=== PATIENT | female | born 1960 | race Caucasian/White ===

== ENCOUNTER → 2022-06-23 15:31 | Outpatient (CLI) | payer OTHER, SELFPAY | PROVIDERS: Visit Provider Nurse Practitioner Family | DX: N39.0 Urinary tract infection, site not specified (principal); R30.0 Dysuria | CPT/HCPCS: 87077; 87086; 87186; 87210 ==

== ENCOUNTER → 2022-07-10 09:46 | Outpatient (CLI) | payer OTHER, SELFPAY | PROVIDERS: Visit Provider Physician Assistant | DX: R30.0 Dysuria (principal) | CPT/HCPCS: 87086; 87210 ==

== ENCOUNTER → 2023-07-24 15:42 | Outpatient (CLI) | payer BC, SELFPAY | PROVIDERS: PCP Registered Nurse Diabetes Educator; Visit Provider Student in an Organized Health Care Education/Training Program | DX: R30.0 Dysuria (principal) | CPT/HCPCS: 87086 ==

== ENCOUNTER → 2023-12-27 07:38 | Outpatient (CLI) | payer BC, SELFPAY ==
[2023-12-27 08:15] LABS: Hematocrit 39.8 % (36-46); Hemoglobin 13.5 g/dL (12.0-16.0); Mean Corpuscular HGB Conc 33.8 % (30-36); Mean Corpuscular Volume 94.5 fL (80-100); Platelet Count 259 X10^3/uL (150-400); Red Blood Cell Count 4.21 X10^6/uL (4.0-5.2); Red Cell Distribution Width 13.9 % (11.6-14.8); White Blood Cell Count 4.7 X10^3/uL (4.5-11.0)
[2023-12-27 09:21] LABS: TSH w/ Reflex to FT4 2.72 uIU/mL (0.47-4.68)
[2023-12-27 10:01] LABS: Alanine Aminotransferase 11 IU/L (<35); Albumin 4.1 g/dL (3.5-5.0); Albumin Globulin Ratio 1.3 (1.0-2.8); Alkaline Phosphatase 69 U/L (38-126); Aspartate Aminotransferase 21 IU/L (14-36); BUN Creatinine Ratio 18.6 (6-22); Bilirubin Total 0.7 mg/dL (0.2-1.3); Blood Urea Nitrogen 13 mg/dL (7-17); Calcium 9.4 mg/dL (8.4-10.2); Carbon Dioxide 30 mmol/L (22-32); Chloride 101 mmol/L (98-107); Cholesterol 214 mg/dL (140-199); Estimated Glomerular Filt Rate > 60 mL/min (>60); Globulin 3.1 g/dL (1.7-4.1); Glucose 90 mg/dL (80-110); HDL Cholesterol 107 mg/dL (40-60); HEMOLYSIS < 15 (0-50); LDL Cholesterol Calculated 94 mg/dL (<100); Potassium 4.2 mmol/L (3.4-5.1); Sodium 135 mmol/L (137-145); Total Protein 7.2 g/dL (6.3-8.2); Triglycerides 64 mg/dL (35-150)
== END ==
PROVIDERS: PCP Registered Nurse Diabetes Educator; Referring Provider Registered Nurse Diabetes Educator; Visit Provider Registered Nurse Diabetes Educator
DX: Z00.00 Encounter for general adult medical examination without abnormal findings (principal); I10 Essential (primary) hypertension; F41.9 Anxiety disorder, unspecified
CPT/HCPCS: 36415; 80053; 80061; 84443; 85027

== ENCOUNTER → 2024-01-31 08:25 | Outpatient (CLI) | payer BC, SELFPAY ==
--- NOTE | 2024-01-31 | DI.MG.S_ITS ---
BILATERAL DIGITAL SCREENING MAMMOGRAM 3D/2D WITH CAD: 01/31/2024 CLINICAL: Routine screening. Comparison is made to exams dated: 08/01/2022 mammogram, 05/04/2019 mammogram, and 05/02/2016 mammogram - outside location. There are scattered areas of fibroglandular density (category b / 25%-50% glandular tissue). Current study was also evaluated with a Computer Aided Detection (CAD) system. There is a possible developing asymmetry in the right breast middle depth lateral region seen on the craniocaudal view only. No other significant masses, calcifications, or other findings are seen in either breast. IMPRESSION: INCOMPLETE: NEED ADDITIONAL IMAGING EVALUATION The possible developing asymmetry in the right breast is indeterminate. Additional views with possible ultrasound are recommended. Based on Tyrer-Cuzick model (a risk assessment model), the patient's lifetime risk is 22.4% and her 10 year risk is 10.1%. If a patient has an elevated risk, a more comprehensive evaluation should be considered and/or a referral to a genetic counselor. The [place] [employer], [employer], and NCCN Guidelines advise the consideration of Breast MRI as an adjunct to screening mammography in patients whose Lifetime risk to develop breast cancer is 20% or higher. This exam was interpreted at Station ID: [id number]. NOTE: For mammograms, a report in lay terms will be sent to the patient. Approximately 15% of breast malignancies will not be visualized mammographically. In the management of a palpable breast mass, a negative mammogram must not discourage biopsy of a clinically suspicious lesion. Electronically Signed By: Manoj Mcclendon M.D. [facility]/:01/31/2024 12:30:06 letter sent: Additional Imaging Needed ACR BI-RADS Category 0: Incomplete: Need Additional Imaging Evaluation
== END ==
PROVIDERS: PCP Registered Nurse Diabetes Educator; Referring Provider Registered Nurse Diabetes Educator; Visit Provider Registered Nurse Diabetes Educator
DX: Z12.31 Encounter for screening mammogram for malignant neoplasm of breast (principal)
CPT/HCPCS: 77063; 77067

== ENCOUNTER → 2024-02-04 15:50 | Outpatient (CLI) | payer BC, SELFPAY | PROVIDERS: PCP Registered Nurse Diabetes Educator; Visit Provider Physician Assistant Surgical | DX: R35.0 Frequency of micturition (principal) | CPT/HCPCS: 87086; 87210 ==

== ENCOUNTER → 2024-02-11 08:39 | Outpatient (CLI) | payer BC, SELFPAY ==
--- NOTE | 2024-02-11 08:40 | DI.MG.S_ITS ---
UNILATERAL RIGHT DIGITAL DIAGNOSTIC MAMMOGRAM 3D/2D WITH ADDITIONAL VIEWS: 02/11/2024 CLINICAL: Additional evaluation requested from prior study. Comparison is made to exams dated: 01/31/2024 mammogram - [facility], 08/01/2022 mammogram, and 05/04/2019 mammogram - outside location. There are scattered areas of fibroglandular density (category b / 25%-50% glandular tissue). The finding seen on recent screening mammogram did not persist with additional imaging and is consistent with superimposition of normal breast tissue. No significant masses, calcifications, or other findings are seen in the breast. IMPRESSION: NEGATIVE Superimposition of normal breast tissue. No mammographic evidence of malignancy. A 1 year screening mammogram is recommended. Findings and recommendations were conveyed to the patient during today's evaluation. Based on Tyrer-Cuzick model (a risk assessment model), the patient's lifetime risk is 22.4% and her 10 year risk is 10.1%. If a patient has an elevated risk, a more comprehensive evaluation should be considered and/or a referral to a genetic counselor. The [place] [employer], [employer], and NCCN Guidelines advise the consideration of Breast MRI as an adjunct to screening mammography in patients whose Lifetime risk to develop breast cancer is 20% or higher. This exam was interpreted at Station ID: [id number]. NOTE: For mammograms, a report in lay terms will be sent to the patient. Approximately 15% of breast malignancies will not be visualized mammographically. In the management of a palpable breast mass, a negative mammogram must not discourage biopsy of a clinically suspicious lesion. Electronically Signed By: Janice Clemente M.D., Ph.D. eb/:02/11/2024 09:33:45 letter sent: Normal Exam ACR BI-RADS Category 1: Negative
== END ==
LOC: MAMMO 08:40
PROVIDERS: PCP Registered Nurse Diabetes Educator; Referring Provider Registered Nurse Diabetes Educator; Visit Provider Registered Nurse Diabetes Educator
DX: R92.8 Other abnormal and inconclusive findings on diagnostic imaging of breast (principal)
CPT/HCPCS: 77065; G0279

== ENCOUNTER → 2024-02-14 10:09 | Outpatient (CLI) | payer BC, SELFPAY ==
--- NOTE | 2024-02-14 10:11 | DI.RAD.S_ITS ---
PROCEDURE: XR SACRUM COCCYX MIN 2V INDICATIONS: eval chronic pain in low back/tailbone, remote hx trauma TECHNIQUE: 3 views of the sacrum and coccyx acquired. COMPARISON: None. FINDINGS: Bones: No fractures or dislocations. No suspicious bony lesions. Soft tissues: Visualized bowel gas pattern is normal. No suspicious soft tissue densities. IMPRESSION: No acute abnormality. Dictated by: Jesse Harkins M.D. on 02/17/2024 at 17:22 Approved by: Jesse Harkins M.D. on 02/17/2024 at 17:22
--- NOTE | 2024-02-14 10:11 | DI.RAD.S_ITS ---
PROCEDURE: XR LUMBAR SPINE MIN 4V INDICATIONS: eval chronic pain in low back/tailbone, remote hx trauma TECHNIQUE: 5 views of the lumbar spine were acquired, including bilateral oblique views. COMPARISON: None. FINDINGS: Bones: 5 nonrib-bearing vertebrae are present. There is normal bony alignment. No vertebral body compression fractures. No suspicious bony lesions. Mild diffuse disc height loss. Soft tissues: Overlying bowel gas pattern is normal. No suspicious soft tissue calcifications. Oblique images: No pars defects. IMPRESSION: Mild diffuse disc height loss. No displaced fracture. Dictated by: Jesse Harkins M.D. on 02/17/2024 at 17:21 Approved by: Jesse Harkins M.D. on 02/17/2024 at 17:22
--- NOTE | 2024-02-14 10:11 | DI.RAD.S_ITS ---
PROCEDURE: XR FINGER RT MIN 2V INDICATIONS: eval R thumb abnormal appearance TECHNIQUE: AP hand, 2 views of the 1st finger(s) acquired. COMPARISON: None. FINDINGS: Bones: No fractures or dislocations. No suspicious bony lesions. Soft tissues: No suspicious soft tissue calcifications. IMPRESSION: No acute bony abnormality. Dictated by: Jesse Harkins M.D. on 02/17/2024 at 17:20 Approved by: Jesse Harkins M.D. on 02/17/2024 at 17:20
== END ==
PROVIDERS: PCP Registered Nurse Diabetes Educator; Referring Provider Registered Nurse Diabetes Educator; Visit Provider Registered Nurse Diabetes Educator
DX: M53.3 Sacrococcygeal disorders, not elsewhere classified (principal); M54.59 Other low back pain; S60.011A Contusion of right thumb without damage to nail, initial encounter; X58.XXXA Exposure to other specified factors, initial encounter
CPT/HCPCS: 72110; 72220; 73140

== ENCOUNTER → 2024-07-14 16:55 | Outpatient (CLI) | payer BC, SELFPAY ==
[2024-07-14 17:16] LABS: Appearance Urine UA CLEAR; Bilirubin Urine UA NEGATIVE (NEGATIVE); Color Urine UA YELLOW; Glucose Urine UA NEGATIVE (Negative); Ketones Urine UA NEGATIVE (NEGATIVE); Leukocyte Esterase Urine UA 2+ (NEGATIVE); Nitrite Urine UA NEGATIVE (Negative); Occult Blood Urine UA 1+ (Negative); Protein Urine UA NEGATIVE (Negative); Specific Gravity Urine UA <=1.005 (1.000-1.035); Urobilinogen Urine UA 0.2 E.U./dL (0.2)
[2024-07-14 17:28] LABS: Bacteria Urine Occasional (0-1); Culture Indicated Urine Specimen Cultured; RBC Urine 0-1/HPF (0-5/HPF); Squamous Epithelial Cell Urine 0-1 /HPF (0-5/HPF); Urine Volume 10mL (spun); WBC Urine 1-5/HPF (0-5/HPF)
[2024-07-14 18:06] LABS: Add Manual Diff / Slide Review NO; Basophils Absolute Auto 0 /uL (0-100); Basophils Percent Auto 0.5 % (0-2); Eosinophils Absolute Auto 100 /uL (0-450); Hematocrit 43.1 % (36-46); Hemoglobin 14.3 g/dL (12.0-16.0); Lymphocytes Absolute Auto 1900 /uL (1100-4500); Lymphocytes Percent Auto 30.5 % (25-40); Mean Corpuscular HGB Conc 33.1 % (30-36); Mean Corpuscular Hemoglobin 31.3 PG (26-34); Mean Corpuscular Volume 94.7 fL (80-100); Monocytes Absolute Auto 600 /uL (0-900); Monocytes Percent Auto 9.2 % (3-14); Neutrophils Absolute Auto 3600 /uL (1500-7000); Neutrophils Percent Auto 58.8 % (50-75); Platelet Count 258 X10^3/uL (150-400); Red Blood Cell Count 4.55 X10^6/uL (4.0-5.2); Red Cell Distribution Width 13.2 % (11.6-14.8); White Blood Cell Count 6.1 X10^3/uL (4.5-11.0)
[2024-07-14 18:31] LABS: Alanine Aminotransferase 19 IU/L (<35); Albumin Globulin Ratio 1.7 (1.0-2.8); Alkaline Phosphatase 75 U/L (38-126); Aspartate Aminotransferase 28 IU/L (14-36); BUN Creatinine Ratio 15.7 (6-22); Bilirubin Total 0.5 mg/dL (0.2-1.3); Blood Urea Nitrogen 11 mg/dL (7-17); C-Reactive Protein Quant < 0.5 mg/dL (<1.0); Carbon Dioxide 27 mmol/L (22-32); Chloride 99 mmol/L (98-107); Estimated Glomerular Filt Rate > 60 mL/min (>60); Glucose 103 mg/dL (80-110); HEMOLYSIS < 15 (0-50); Lipase 135 U/L (23-300); Potassium 4.2 mmol/L (3.4-5.1); Sodium 137 mmol/L (137-145)
== END ==
PROVIDERS: PCP Registered Nurse Diabetes Educator; Referring Provider Registered Nurse Diabetes Educator; Visit Provider Registered Nurse Diabetes Educator
DX: R10.9 Unspecified abdominal pain (principal)
CPT/HCPCS: 36415; 80053; 81001; 83690; 85025; 86140; 87086

== ENCOUNTER 2024-07-21 04:14 | Emergency (ER) | payer BC, SELFPAY ==
[2024-07-21] VITALS (8 sets, daily range): BP systolic 148–176; BP diastolic 69–94; PULSE 70–93; RESP 9–17; O2SAT 99–100; BMI 25.4
--- NOTE | 2024-07-21 04:21 | DI.RAD.S_ITS ---
PROCEDURE: XR CHEST 1V INDICATIONS: palpitations TECHNIQUE: One view of the chest was acquired. COMPARISON: None. FINDINGS AND IMPRESSION: On this single view study, no airspace consolidation or pleural effusion. Normal heart size. Degenerative osseous changes. No significant changes from the preliminary report. Dictated by: Patel Cool M.D. on 07/21/2024 at 7:54 Approved by: Patel Cool M.D. on 07/21/2024 at 7:56
--- NOTE | 2024-07-21 04:22 | ED.ARRPALP ---
HPI - Arrhythmia/Palpitations General Chief Complaint: Arrhythmia/Palpitations Stated Complaint: heart palpitations, twitching, rapid heart beat Time Seen by Provider: 07/21/24 04:20 History of Present Illness HPI narrative: 63-year-old female with a past medical history of hypertension, GERD, comes into the ED from home for evaluation of palpitations. She states that she is started noticing this at around 11:00 p.m. yesterday, states it started spontaneously states that she did call 911 was evaluated by medics states that she had an EKG done and was ?cleared however was told that if she wanted to be evaluated she could come to the emergency department. She states that she started feeling better however the symptoms persisted therefore decided come into the ED for further evaluation treatment she denies any actual chest pain, she denies any other symptoms such as headache visual disturbances shortness breath fever chills nausea vomiting abdominal pain or any other GI/ symptoms time. She denies any recent travel no known sick contacts Related Data Home Medications Medication Instructions Recorded Confirmed cholecalciferol (vitamin D3) 250 250 mcg PO DAILY 03/20/23 07/14/24 mcg (10,000 unit) capsule cranberry 500 mg capsule 500 mg PO BID 03/20/23 07/14/24 lactobacillus combination no.4 3 3,000 mmu cells PO DAILY 03/20/23 07/14/24 billion cell capsule (Probiotic) lysine 500 mg tablet 500 mg PO DAILY 03/20/23 07/14/24 multivitamin with minerals 1 tab PO DAILY 03/20/23 07/14/24 (Hair,Skin and Nails tablet) turmeric root extract 1,053 mg 1,076 mg PO DAILY 03/20/23 07/14/24 tablet Previous Rx's Medication Instructions Recorded losartan 50 mg tablet 75 mg (1.5 x 50 mg) PO DAILY #135 02/12/24 tabs omeprazole 20 mg capsule,delayed 20 mg PO BID 14 days #28 caps 07/14/24 release Allergies Allergy/AdvReac Type Severity Reaction Status Date / Time No Known Drug Allergies Allergy Unverified 07/14/24 15:52 Review of Systems Review of Systems Narrative: General: Denies fever, chills, weight loss HEENT: Denies headache, eye drainage, eye irritation, head trauma, sore throat, voice change Cardiovascular: Positive palpitations Denies any chest pain, tachycardia Respiratory: Denies any shortness of breath, cough, wheeze, stridor GI/: Denies any abdominal pain, nausea, vomiting, diarrhea, bright red blood per rectum, melanotic stools, urinary frequency, urinary retention, dysuria, hematuria MSK: Denies any joint pain, muscle pains, swelling Skin: Denies any rashes, lesions, discoloration Neuro: Denies any headache, lightheadedness, dizziness, fainting, weakness Psych: Denies SI/HI Patient History Medical History Colon polyps Other low back pain Chronic neck pain Anxiety Essential hypertension History of basal cell carcinoma (BCC) Social History Smoking Status: Never smoker Exam Narrative Exam Narrative: General: Cooperative, well-developed, not in acute distress HEENT: Normocephalic, atraumatic, PERRLA, normal sclera, eyelids normal Neck: Active full range of motion, atraumatic Chest: Normal to inspection, negative crepitus, no overlying erythema ecchymosis Respiratory: Normal respiratory effort, not in acute respiratory distress, clear to auscultation bilaterally negative cough, wheeze, tachypnea, rhonchi, rales Cardiology: Regular rate rhythm negative gallop, murmur, rubs GI/: No tenderness to palpation, soft, non rigid, normal to inspection, exam deferred MSK: Full active range of motion in all 4 extremities, atraumatic, no tenderness to palpation of any bony prominences Skin: No rashes or lesions noted Neuro: Alert awake oriented x3, moves all 4 extremities spontaneously, cranial nerves intact, able to answer all questions appropriately follows commands appropriately Psych: Cooperative, negative suicidal or homicidal ideations Initial Vital Signs Initial Vital Signs: Vital Signs Blood Pressure 176/94 H 07/21/24 04:18 Course Orders Ordered: ED Orders 07/21/24 04:21 XR chest 1V Stat EKG-12 Lead Stat 07/21/24 04:30 Complete Blood Count AUTO DIFF Stat Comprehensive Metabolic Panel Stat Lipase Stat MAG [Magnesium] Stat TSH [Thyroid Stimulating Hormone] Stat Troponin & CK Cardiac Panel Stat Discontinued Medications Lorazepam (Lorazepam 2 Mg/Ml Inj) 0.5 mg IV NOW ONE Stop: 07/21/24 04:26 Last Admin: 07/21/24 04:41 Dose: 0.5 mg Documented By: MR Vital Signs Vital signs: Vital Signs - 8 hr 07/21/24 04:18 07/21/24 04:19 07/21/24 04:26 Pulse Rate 93 H 83 Respiratory Rate Blood Pressure 176/94 H Pulse Oximetry 99 99 07/21/24 04:26 07/21/24 04:30 07/21/24 04:32 Pulse Rate 77 81 Respiratory Rate 13 17 Blood Pressure 166/78 H Pulse Oximetry 99 100 07/21/24 04:32 07/21/24 05:00 07/21/24 05:01 Pulse Rate 70 71 Respiratory Rate 9 L 11 L Blood Pressure 148/92 H Pulse Oximetry 100 100 07/21/24 05:01 Pulse Rate Respiratory Rate Blood Pressure 156/69 H Pulse Oximetry MDM - Arrhythmia/Palpitations Differential Diagnosis Differential diagnosis: Likely palpitations, anxiety, sinus tachycardia, artial fibrillation, artial flutter, supraventricular tachycardia and other (Electrolyte abnormality, ACS, pneumonia) Lab Data 07/21/24 04:30 07/21/24 04:30 Labs: Lab Results 07/21/24 Range/Units 04:30 WBC 5.4 (4.5-11.0) X10^3/uL RBC 4.35 (4.0-5.2) X10^6/uL Hgb 13.8 (12.0-16.0) g/dL Hct 40.1 (36-46) % MCV 92.3 (80-100) fL MCH 31.7 (26-34) PG MCHC 34.4 (30-36) % RDW 13.0 (11.6-14.8) % Plt Count 230 (150-400) X10^3/uL Neut % (Auto) 63.7 (50-75) % Lymph % (Auto) 26.8 (25-40) % [place] % (Auto) 7.6 (3-14) % Eos % (Auto) 1.2 L (2-4) % Baso % (Auto) 0.7 (0-2) % Neut # (Auto) 3400 (9376-7089) /uL Lymph # (Auto) 1400 (6257-0800) /uL [place] # (Auto) 400 (0-900) /uL Eos # (Auto) 100 (0-450) /uL Baso # (Auto) 0 (0-100) /uL Sodium 139 (137-145) mmol/L Potassium 3.5 (3.4-5.1) mmol/L Chloride 102 (98-107) mmol/L Carbon Dioxide 28 (22-32) mmol/L BUN 8 (7-17) mg/dL Creatinine 0.65 (0.52-1.04) mg/dL Estimated GFR > 60 (>60) mL/min BUN/Creatinine Ratio 12.3 (6-22) Glucose 119 H (80-110) mg/dL Calcium 10.1 (8.4-10.2) mg/dL Magnesium 2.0 (1.6-2.3) mg/dL Total Bilirubin 0.6 (0.2-1.3) mg/dL AST 26 (14-36) IU/L ALT 21 (<35) IU/L Alkaline Phosphatase 72 (38-126) U/L Total Creatine Kinase 56 (30-135) U/L Troponin I < 0.012 (0.01-0.034) ng/mL Total Protein 7.8 (6.3-8.2) g/dL Albumin 4.7 (3.5-5.0) g/dL Globulin 3.1 (1.7-4.1) g/dL Albumin/Globulin Ratio 1.5 (1.0-2.8) Lipase 108 (23-300) U/L TSH 3.91 (0.47-4.68) uIU/mL Imaging Data Chest x-ray: Radiologist's Impresson: Preliminary read showing no acute cardiopulmonary abnormality ECG Data Interpretation: EKG interpreted ED physician sinus 83 beats per minute QTC 474, normal axis nonspecific ST changes no STEMI MDM Narrative Medical decision making narrative: 63-year-old female with a past medical history of hypertension, GERD, comes into the ED from home for evaluation of palpitations started spontaneously at around 11:00 p.m. yesterday, has been intermittent nature, was cleared by EMS initially but presents to the ED for persistently intermittent palpitations. She denies any actual chest pain. Patient had lab work imaging EKG performed here in the emergency department. EKG not showing any signs of ischemic changes, chest x-ray without acute cardiopulmonary abnormality, lab work was unremarkable troponin negative, TSH normal, patient did have improved symptoms after administration of 0.5 mg Ativan. Patient was instructed to follow up with primary care and Cardiology in outpatient setting, patient was given strict return precautions verbalized understanding of this and agrees to being discharged home with outpatient follow up Discharge Plan Departure Patient Disposition: Home Clinical Impression: Palpitations Instructions: DI for Palpitations Activity Restrictions/Additional Instructions: Follow up with Cardiology and primary care Please read the discharge instructions sheet carefully and bring all papers to all doctor follow-up visits, as it may contain information that your doctor may want to see. Disease processes change and evolve, if your symptoms worsen or if you develop any new symptoms that are concerning to you please return for evaluation. Your evaluation today does not show any evidence of any life-threatening/serious illnesses requiring admission to the hospital or surgery. Please follow-up with your doctor for re-evaluation in approximately 1 day. Seek immediate medical attention for any worrisome symptoms. *If you do not have a primary care provider please contact the [facility] Resource line at [phone]. They will ask some questions about your medical history and help get you set up with a doctor in the community. Prescriptions: No Action losartan 50 mg tablet 75 mg PO DAILY Qty: 135 3RF omeprazole 20 mg capsule,delayed release(DR/EC) 20 mg PO BID 14 Days Qty: 28 0RF Probiotic 3 billion cell capsule 3,000 mmu cells PO DAILY Rx Instructions: administer with a meal Hair,Skin and Nails Tablet 1 tab PO DAILY turmeric root extract 1,053 mg tablet 1,076 mg PO DAILY cranberry 500 mg capsule 500 mg PO BID Rx Instructions: administer with meals lysine 500 mg tablet 500 mg PO DAILY cholecalciferol (vitamin D3) 250 mcg (10,000 unit) capsule 250 mcg PO DAILY Referrals: Lilliam Cao MD [Physician] - Gumaro Lowry ARNP [Primary Care Provider] - Stand Alone Forms: Patient Portal/API/Survey
--- NOTE | 2024-07-21 04:23 | EKG_ITS ---
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
[2024-07-21 04:38] LABS: Add Manual Diff / Slide Review NO; Basophils Absolute Auto 0 /uL (0-100); Basophils Percent Auto 0.7 % (0-2); Eosinophils Absolute Auto 100 /uL (0-450); Eosinophils Percent Auto 1.2 % (2-4); Hematocrit 40.1 % (36-46); Hemoglobin 13.8 g/dL (12.0-16.0); Lymphocytes Absolute Auto 1400 /uL (1100-4500); Lymphocytes Percent Auto 26.8 % (25-40); Mean Corpuscular HGB Conc 34.4 % (30-36); Mean Corpuscular Hemoglobin 31.7 PG (26-34); Mean Corpuscular Volume 92.3 fL (80-100); Monocytes Absolute Auto 400 /uL (0-900); Monocytes Percent Auto 7.6 % (3-14); Neutrophils Absolute Auto 3400 /uL (1500-7000); Neutrophils Percent Auto 63.7 % (50-75); Platelet Count 230 X10^3/uL (150-400); Red Blood Cell Count 4.35 X10^6/uL (4.0-5.2); White Blood Cell Count 5.4 X10^3/uL (4.5-11.0)
[2024-07-21] MEDS: LORazepam 2 MG/ML INJ 0.5 MG IV (04:41)
[2024-07-21 04:50] LABS: Alanine Aminotransferase 21 IU/L (<35); Albumin 4.7 g/dL (3.5-5.0); Albumin Globulin Ratio 1.5 (1.0-2.8); Alkaline Phosphatase 72 U/L (38-126); Aspartate Aminotransferase 26 IU/L (14-36); BUN Creatinine Ratio 12.3 (6-22); Bilirubin Total 0.6 mg/dL (0.2-1.3); Blood Urea Nitrogen 8 mg/dL (7-17); Calcium 10.1 mg/dL (8.4-10.2); Carbon Dioxide 28 mmol/L (22-32); Chloride 102 mmol/L (98-107); Creatine Kinase 56 U/L (30-135); Estimated Glomerular Filt Rate > 60 mL/min (>60); Globulin 3.1 g/dL (1.7-4.1); Glucose 119 mg/dL (80-110); HEMOLYSIS < 15 (0-50); Lipase 108 U/L (23-300); Potassium 3.5 mmol/L (3.4-5.1); Sodium 139 mmol/L (137-145); Total Protein 7.8 g/dL (6.3-8.2)
[2024-07-21 05:01] LABS: Troponin I < 0.012 ng/mL (0.01-0.034)
[2024-07-21 05:21] LABS: Thyroid Stimulating Hormone 3.91 uIU/mL (0.47-4.68)
== END 2024-07-21 05:49 | disposition home or self-care (01) ==
PROVIDERS: Emergency Provider Student in an Organized Health Care Education/Training Program; PCP Registered Nurse Diabetes Educator
DX: R00.2 Palpitations (principal)
CPT/HCPCS: 36415; 71045; 80053; 82550; 83690; 83735; 84443; 84484; 85025; 93005; 96374; 99284; J2060

== ENCOUNTER → 2024-08-13 10:39 | Outpatient (CLI) | payer BC, SELFPAY ==
--- NOTE | 2024-08-13 10:40 | DI.MRI.S_ITS ---
MR breast BI wo/w con: 08/13/2024. BI-RADS: 1 CLINICAL: 63-year old female for bilateral diagnostic breast MRI. Current reported family history of breast cancer: sister. PRIOR EXAMS 02/11/2024, 01/31/2024. MRI TECHNIQUE Bilateral breast MRI was performed on a 1.5 Beth magnet using a dedicated breast coil with mild compression. Axial T1 and T2 STIR sequences were obtained. Dynamic contrast enhanced VIBRANT fat-suppressed sequences were obtained. Delayed sagittal high resolution or sagittal reconstructed isotropic sequence was also obtained. Subtraction images and maximum intensity projection images were obtained. The study was evaluated using Solartrec software. Gadavist was injected intravenously: mL. IV Contrast: 20 ml ProHance. FIBROGLANDULAR TISSUE Bilateral: A. Almost entirely fat. BACKGROUND PARENCHYMAL ENHANCEMENT Bilateral: Minimal symmetrical background parenchymal enhancement. BREAST FINDINGS Bilateral: No suspicious mass, suspicious non-mass enhancement, or other concerning finding identified. CHEST FINDINGS No axillary or internal mammary chain adenopathy. No abnormality seen in the visible portions of the heart, lungs, chest wall, and liver. IMPRESSION: * No evidence of malignancy. RECOMMENDATIONS Bilateral * According to the Tyrer-Cuzick Risk Assessment Model, based on the information provided your patient has a greater than 20% lifetime risk for developing breast cancer. Consider supplemental screening with breast MRI and participation in a high risk screening program. * Annual screening mammography. OVERALL ASSESSMENT CATEGORY BI-RADS-1: Negative. ELECTRONICALLY SIGNED: Caitlin Bauer M.D. on 08/13/2024 at 01:09:29 PM PT Interpreting Station ID: [id number]
== END ==
PROVIDERS: PCP Registered Nurse Diabetes Educator; Referring Provider Registered Nurse Diabetes Educator; Visit Provider Registered Nurse Diabetes Educator
DX: Z01.419 Encounter for gynecological examination (general) (routine) without abnormal findings (principal); Z91.89 Other specified personal risk factors, not elsewhere classified; R92.313 Mammographic fatty tissue density, bilateral breasts; Z80.3 Family history of malignant neoplasm of breast
CPT/HCPCS: 77049; A9579

== ENCOUNTER → 2025-01-11 09:24 | Outpatient (CLI) | payer BC, SELFPAY ==
[2025-01-11 10:18] LABS: Blood Urea Nitrogen 13 mg/dL (7-17); Calcium 9.8 mg/dL (8.4-10.2); Carbon Dioxide 32 mmol/L (22-32); Chloride 98 mmol/L (98-107); Estimated Glomerular Filt Rate > 60 mL/min (>60); Glucose 70 mg/dL (70-99); HEMOLYSIS < 15 (0-50); Potassium 4.0 mmol/L (3.4-5.1); Sodium 135 mmol/L (137-145)
== END ==
PROVIDERS: PCP Registered Nurse Diabetes Educator; Referring Provider Registered Nurse Diabetes Educator; Visit Provider Internal Medicine Cardiovascular Disease
DX: I10 Essential (primary) hypertension (principal)
CPT/HCPCS: 36415; 80048; 82088

== ENCOUNTER → 2025-02-10 13:40 | Outpatient (CLI) | payer BC, SELFPAY ==
--- NOTE | 2025-02-10 13:41 | DI.ECHO.S_ITS ---
[facility] : : [address] : : [place] : : [id number] : : Phone: [phone] Echocardiogram Report + + :Name: YONATAN DOUGLAS Study Date: 02/10/2025 Height: 66 in : :[facility] ReadingLocation: Weight: 145 lb : : Gender: Female BSA: 1.7 m2 : :: 1960 Age: 64 yrs BP: 147/97 mmHg: :Reason For Study: CARDIAC ARRHYTHMIA, PALPITATIONS : :Ordering Physician: SAPNA, : :KAYA Performed By: José Manuel Harris : :Referring: KAYA ALEJO : + + Interpretation Summary The left ventricle is normal in size. The ejection fraction is estimated to be 55-60%. The right ventricle is normal in size and function. No significant valvular pathology seen. The IVC is of normal diameter and collapses greater than 50% with a sniff. This suggests a low right atrial pressure of 3 mm Hg. Procedure: A two-dimensional transthoracic echocardiogram with color flow and Doppler was performed. The study quality was technically good. There is no prior echocardiogram noted for this patient. The patient was in normal sinus rhythm during the exam. Left Ventricle: The left ventricle is normal in size. There is normal left ventricular wall thickness. There is no thrombus. The ejection fraction is estimated to be 55-60%. There are no focal wall motion abnormalities. Diastolic parameters suggest a relaxation abnormality of the left ventricle, consistent with probable normal filling pressures. Right Ventricle: The right ventricle is normal in size and function. Atria: The left atrial size is normal. Right atrial size is normal. There is no Doppler evidence for an interatrial shunt. The thickening of interatrial septum suggests lipomatous hypertrophy. Mitral Valve: The mitral valve leaflets are slightly calcified. There is a flat closure plane of the the mitral valve leaflets. There is trace mitral regurgitation. Aortic Valve: The aortic valve is trileaflet. The aortic valve opens well. There is no aortic valve stenosis. No aortic regurgitation is present. Tricuspid Valve: The tricuspid valve leaflets are thin and pliable. There is trace tricuspid regurgitation. Pulmonary artery pressures cannot be estimated because of the lack of a measurable TR jet velocity. Pulmonic Valve: The pulmonic valve leaflets are thin and pliable; valve motion is normal. There is trace pulmonic regurgitation. Great Vessels: The aortic root is normal size. The dimensions of the ascending aorta are normal. The pulmonary artery is normal size. The IVC is of normal diameter and collapses greater than 50% with a sniff. This suggests a low right atrial pressure of 3 mm Hg. Pericardium/ Pleura There is no pericardial effusion. There is no pleural effusion. MMode/2D Measurements & Calculations LVIDd: 4.7 cm LVOT diam: 1.9 cm LVIDs: 3.2 cm Ao root diam: 3.3 cm FS: 32.0 % asc Aorta Diam: 2.8 cm EPSS: 0.77 cm IVSd: 0.94 cm LVPWd: 0.85 cm LV chun. diameter/BSA (cm/m^2): 2.7 LV sys. diameter/BSA (cm/m^2): 1.8 LA A2 area: 17.7 cm2 RA long axis: 3.8 cm LA A4 area: 18.8 cm2 RA area: 9.7 cm2 LA length (vol): 5.0 cm RA vol: 21.2 ml LA vol: 56.2 ml RA : 12.2 ml/m2 LA vol index: 32.2 ml/m2 IVC diam: 1.1 cm RVD1 (basal): 3.1 cm RVD2 (mid): 2.2 cm TAPSE: 2.5 cm Doppler Measurements & Calculations Ao V2 max: 142.2 cm/sec LVOT Max Quentin: 86.9 cm/sec Ao V2 mean: 108.6 cm/sec LV V1 max P.0 mmHg Ao max P.1 mmHg LV V1 VTI: 21.0 cm Ao mean P.0 mmHg SELENE(I,D): 1.9 cm2 Ao V2 VTI: 33.1 cm SELENE(V,D): 1.8 cm2 sev ratio: 0.64 SELENE indexed to BSA (cm^2/m^2): 1.1 MV E max quentin: 69.1 cm/sec PA V2 max: 80.4 cm/sec MV A max quentin: 112.1 cm/sec PA V2 mean: 63.1 cm/sec MV E/A: 0.62 PA mean P.7 mmHg Med Peak E' Quentin: 5.3 cm/sec PA pr(Accel): 10.5 mmHg E/E' med: 13.1 Lat Peak E' Quentin: 6.5 cm/sec E/E' lat: 10.6 E/e' average: 11.8 MV dec time: 0.20 sec [facility] 61.6 ml Reading Physician:04:37 PM
--- NOTE | 2025-02-11 07:32 | DI.NM.S_ITS ---
DATE OF SERVICE: 02/10/2025 PROCEDURE: Exercise stress test. INDICATIONS: Palpitations with underlying hypertension. CARDIAC STRESS: The patient underwent exercise stress test under the supervision of an attending staff. She walked on [place] protocol for 9 minutes and achieved maximum heart rate of 153, which was 97% of target heart rate, YESSICA -37%, 10 METs of workload. Baseline rhythm sinus. During stress, no convincing ischemic EKG changes seen. No significant arrhythmias. No chest pain. The patient had some shortness of breath. Resting blood pressure 160/100 and peak blood pressure 182/104 mmHg. Normal recovery. CONCLUSION: Exercise stress test is negative for inducible ischemia. Good exercise tolerance. Hypertensive to begin with. No significant arrhythmias. No chest pain. Normal recovery. Overall, low-risk exercise stress test. Anna Peters - TANG/kylah/MOSES doc#: [id number]/job#: [id number] dd: 02/10/2025 17:01:00 dt: 02/10/2025 18:00:00 DICTATING /COPIES TO: Lilliam Cao MD COPIES MNE: BELEN;
== END ==
PROVIDERS: PCP Registered Nurse Diabetes Educator; Referring Provider Internal Medicine Cardiovascular Disease; Visit Provider Internal Medicine Cardiovascular Disease
DX: R00.2 Palpitations (principal)
CPT/HCPCS: 93017; 93306